=== PATIENT | female | born 1950 | race Caucasian/White ===

== ENCOUNTER 2018-08-23 22:25 | Emergency (ER) | payer BC, MEDICARE ==
[2018-08-23] MEDS ORDERED: Ketorolac 60 MG/2 ML SDV IM ONE (23:40)
--- NOTE | 2018-08-23 23:46 | EDM.PDOC ---
ED HPI GENERAL MEDICAL PROBLEM - General Chief Complaint: Lower Extremity Injury/Pain Stated Complaint: RIGHT ANKLE SWELLING/PAIN Time Seen by Provider: 08/23/18 23:40 Source of Information: Reports: Patient History Limitations: Reports: No Limitations - History of Present Illness INITIAL COMMENTS - FREE TEXT/NARRATIVE: pt arrived with acute pain in the lateral aspect of the rt ankle. This has gotten red and hot through out the day. She cannot put weight on the ankle. Onset: Gradual, Other ( last 2 days, ) Duration: Hour(s): Location: Reports: Lower Extremity, Right Associated Symptoms: Reports: Fever/Chills, Other (pt has a low grade temp. ) Treatments [employer]: Reports: Acetaminophen, NSAIDS Right Ankle Pain Score (Numeric/FACES): 8 - Related Data Allergies Allergy/AdvReac Type Severity Reaction Status Date / Time Sulfa (Sulfonamide Allergy Cannot Verified 08/23/18 23:10 Antibiotics) Remember Home Meds: Home Meds Albuterol [Proair HFA] 1 puff IH DAILY PRN 06/01/14 [History] FLUoxetine HCl [Fluoxetine HCl] 20 mg PO DAILY 06/01/14 [History] Furosemide 40 mg PO BID 06/01/14 [History] Levothyroxine 88 mcg PO ACBRK 06/01/14 [History] Lisinopril 2.5 mg PO DAILY 06/01/14 [History] Tiotropium [Spiriva Handihaler] 1 puff IH DAILY 06/01/14 [History] Metoprolol Succinate [Toprol XL] 25 mg PO DAILY 08/23/18 [History] atorvaSTATin [Lipitor] 40 mg PO BEDTIME 08/23/18 [History] Past Medical History Cardiovascular History: Reports: [place], PTCA, Stents Respiratory History: Reports: COPD, Other (See Below) Other Respiratory History: Use O2 @2L/NC has a cpap but not using Gastrointestinal History: Reports: Cholelithiasis Endocrine/Metabolic History: Reports: Other (See Below) Other Endocrine/Metabolic History: prediabetic - Infectious Disease History Infectious Disease History: Reports: Chicken Pox - Past Surgical History Cardiovascular Surgical History: Reports: Coronary Artery Stent GI Surgical History: Reports: Appendectomy, Cholecystectomy Review of Systems - Review of Systems Review Of Systems: See Below Constitutional: Reports: Fever Eyes: Reports: No Symptoms Ears: Reports: No Symptoms Nose: Reports: No Symptoms Mouth/Throat: Reports: No Symptoms Respiratory: Reports: No Symptoms Cardiovascular: Reports: No Symptoms GI/Abdominal: Reports: No Symptoms Genitourinary: Reports: No Symptoms Musculoskeletal: Reports: Other ( ankle pain) ED EXAM, GENERAL - Physical Exam Exam: See Below Free Text/Narrative:: over the last 2 days pt has developed swelling and pain in the lateral aspect of left ankle. Exam Limited By: No Limitations General Appearance: Alert, Moderate Distress Ears: Normal TMs Nose: Normal Inspection Throat/Mouth: Normal Inspection Head: Atraumatic Neck: Normal Inspection Respiratory/Chest: No Respiratory Distress Cardiovascular: Regular Rate, Rhythm GI/Abdominal: Soft, Non-Tender Extremities: Other (pain in the lateral left ankle. This ankle is swollen red and hot. ) Neurological: Alert, Oriented Course - Vital Signs Last Recorded V/S: Last Vital Signs Temp 37.2 C 08/23/18 23:11 Pulse 65 08/23/18 23:38 Resp 14 08/23/18 23:38 BP 121/48 L 08/23/18 23:38 Pulse Ox 94 L 08/23/18 23:38 - Orders/Labs/Meds Labs: Laboratory Tests 08/23/18 08/23/18 08/23/18 Range/Units 23:45 23:45 23:45 WBC 12.8 H (4.5-11.0) K/uL RBC 4.57 (3.30-5.50) M/uL Hgb 13.7 (12.0-15.0) g/dL Hct 42.1 (36.0-48.0) % MCV 92 (80-98) fL MCH 30 (27-31) pg MCHC 33 (32-36) % Plt Count 165 (150-400) K/uL Neut % (Auto) 65 (36-66) % Lymph % (Auto) 24 (24-44) % Gray % (Auto) 9 H (2-6) % Eos % (Auto) 2 (2-4) % Baso % (Auto) 0 (0-1) % Sodium 138 L (140-148) mmol/L Potassium 3.2 L (3.6-5.2) mmol/L Chloride 100 (100-108) mmol/L Carbon Dioxide 30 (21-32) mmol/L Anion Gap 11.2 (5.0-14.0) mmol/L BUN 20 H (7-18) mg/dL Creatinine 1.2 H (0.6-1.0) mg/dL Est Cr Clr Drug Dosing 33.86 mL/min Estimated GFR (MDRD) 45 L (>60) Glucose 137 H (74-106) mg/dL Uric Acid 6.1 (2.6-6.2) mg/dL Calcium 9.3 (8.5-10.1) mg/dL Total Bilirubin 0.4 (0.2-1.0) mg/dL AST 20 (15-37) U/L ALT 36 (12-78) U/L Alkaline Phosphatase 76 (46-116) U/L C-Reactive Protein 5.58 H (0.0-0.3) mg/dL Total Protein 7.6 (6.4-8.2) g/dL Albumin 3.0 L (3.4-5.0) g/dL Globulin 4.6 H (2.3-3.5) g/dL Albumin/Globulin Ratio 0.7 L (1.2-2.2) Meds: Medications Discontinued Medications Generic Name Dose Route Start Last Admin Trade Name Freq PRN Reason Stop Dose Admin Ceftriaxone Sodium 1 gm 08/24/18 00:33 Rocephin IM 08/24/18 00:34 ONETIME ONE Ketorolac Tromethamine 60 mg 08/23/18 23:40 08/23/18 23:48 Toradol IM 08/23/18 23:41 60 mg ONETIME ONE Administration Lidocaine HCl 2.1 ml 08/24/18 00:47 Xylocaine-Mpf 1% INJECT 08/24/18 00:48 ONETIME ONE - Re-Assessments/Exams Free Text/Narrative Re-Assessment/Exam: 08/24/18 00:35 pt has a crp which is very elevated. Her wbc is mildly elebvated. Her uric acid is normal. She does have a low grade temp. Departure - Departure Time of Disposition: 00:36 Disposition: Home, Self-Care 01 Condition: Fair Clinical Impression: Cellulitis - Discharge Information Referrals: Reji Kirk MD [Primary Care Provider] - Forms: ED Department Discharge Care Plan Goals: moist warm heat to the area, soak in warm water bid, augmentin 875 bid, norco 5 /325 1 tab q6h prn for pain #10, elevate leg when sitting, rtc sat pm for a recheck-- to the er, Use yogurt or probiotic while on the antibiotic.
--- NOTE | 2018-08-24 00:07 | CRLCR ---
INDICATION: Pain lateral aspect of ankle TECHNIQUE: Three views right ankle COMPARISON: None FINDINGS: Bones: Alignment is normal. No fractures. Dorsal calcaneal spur. Joint spaces: Unremarkable. Soft tissues: Lateral ankle edema. IMPRESSION: Lateral ankle edema. Dictated by Robert Lemus MD @ 08/24/2018 12:06:28 AM Dictated by: Robert Lemus MD @ 08/24/2018 00:06:34 (Electronically Signed)
[2018-08-24] MEDS ORDERED: cefTRIAXone 1 GM Vial IM ONE (00:33)
== END 2018-08-24 01:15 | disposition home or self-care (01) ==
LOC: JP.ED 22:25
DX: L03.116 Cellulitis of left lower limb (principal); Z88.2 Allergy status to sulfonamides; Z79.899 Other long term (current) drug therapy
CPT/HCPCS: 36415; 73610; 80053; 84550; 85025; 86140; 96372; 99283; J0696; J1885; J2001

== ENCOUNTER 2018-08-25 18:43 | Emergency (ER) | payer MEDICARE ==
--- NOTE | 2018-08-25 19:47 | EDM.PDOC ---
ED HPI GENERAL MEDICAL PROBLEM - General Chief Complaint: Wound Recheck Stated Complaint: ANKLE RECHECK Time Seen by Provider: 08/25/18 19:42 Source of Information: Reports: Patient History Limitations: Reports: No Limitations - History of Present Illness INITIAL COMMENTS - FREE TEXT/NARRATIVE: pt arrived for a recheck for the inflamation of the rt ankle. She is still not able to bear weight on the foot. She feels that there is more general swelling. It is not as red as it was on Thur nite. Onset: Gradual Duration: Day(s): Location: Reports: Lower Extremity, Right Associated Symptoms: Reports: No Other Symptoms - Related Data Allergies Allergy/AdvReac Type Severity Reaction Status Date / Time Sulfa (Sulfonamide Allergy Cannot Verified 08/25/18 19:31 Antibiotics) Remember Home Meds: Home Meds Albuterol [Proair HFA] 1 puff IH DAILY PRN 06/01/14 [History] FLUoxetine HCl [Fluoxetine HCl] 20 mg PO DAILY 06/01/14 [History] Furosemide 40 mg PO BID 06/01/14 [History] Levothyroxine 88 mcg PO ACBRK 06/01/14 [History] Lisinopril 2.5 mg PO DAILY 06/01/14 [History] Tiotropium [Spiriva Handihaler] 1 puff IH DAILY 06/01/14 [History] Metoprolol Succinate [Toprol XL] 25 mg PO DAILY 08/23/18 [History] atorvaSTATin [Lipitor] 40 mg PO BEDTIME 08/23/18 [History] Past Medical History Cardiovascular History: Reports: [place], PTCA, Stents Respiratory History: Reports: COPD, Other (See Below) Other Respiratory History: Use O2 @2L/NC has a cpap but not using Gastrointestinal History: Reports: Cholelithiasis Endocrine/Metabolic History: Reports: Other (See Below) Other Endocrine/Metabolic History: prediabetic - Infectious Disease History Infectious Disease History: Reports: Chicken Pox - Past Surgical History Cardiovascular Surgical History: Reports: Coronary Artery Stent GI Surgical History: Reports: Appendectomy, Cholecystectomy Social & Family History - Tobacco Use Smoking Status *Q: Never Smoker - Caffeine Use Caffeine Use: Reports: Coffee ED ROS GENERAL - Review of Systems Review Of Systems: See Below Constitutional: Reports: No Symptoms HEENT: Reports: No Symptoms Respiratory: Reports: No Symptoms Cardiovascular: Reports: No Symptoms Endocrine: Reports: No Symptoms GI/Abdominal: Reports: No Symptoms : Reports: No Symptoms Musculoskeletal: Reports: Other (pain in the rt ankle area. ) Skin: Reports: No Symptoms ED EXAM, SKIN/RASH Exam: See Below Text/Narrative:: pt arrived with continued swelling on the rt ankle . The redness is better but she continues to be swollen. Exam Limited By: No Limitations General Appearance: Alert, Anxious, Moderate Distress Ears: Normal TMs Nose: Normal Inspection Throat/Mouth: Normal Inspection Head: Atraumatic Neck: Normal Inspection Extremities: Other ( redness is better. The ankle continues to be swollen and very tender. She is still having a problem weight bearing. ) Neurological: Alert, Oriented Course - Vital Signs Last Recorded V/S: Last Vital Signs Temp 36.8 C 08/25/18 19:36 Pulse 71 08/25/18 19:36 Resp 14 08/25/18 19:36 BP 134/88 08/25/18 19:36 Pulse Ox 96 08/25/18 19:36 - Orders/Labs/Meds Orders: Active Orders 24 hr Category Date Time Status CBC WITH AUTO DIFF [HEME] Urgent Lab 08/25/18 19:53 Received RHEUMATOID FACTOR, IGG/M/A Routine Lab 08/25/18 20:02 Received Labs: Laboratory Tests 08/25/18 Range/Units 19:53 Uric Acid 7.2 H (2.6-6.2) mg/dL Meds: Medications Discontinued Medications Generic Name Dose Route Start Last Admin Trade Name Freq PRN Reason Stop Dose Admin Triamcinolone Acetonide 60 mg 08/25/18 20:30 08/25/18 20:36 Kenalog-40 INJECT 08/25/18 20:31 60 mg ASDIRECTED ONE Administration - Re-Assessments/Exams Free Text/Narrative Re-Assessment/Exam: 08/25/18 20:37 pt was found to have a elevated uric acid tonight. The redness on the lateral aspect is better. She was given kenalog 60mg im. 08/25/18 20:38 Departure - Departure Time of Disposition: 20:32 Disposition: Home, Self-Care 01 Condition: Fair Clinical Impression: Cellulitis, Gout - Discharge Information Referrals: PCP,None [Primary Care Provider] - Forms: ED Department Discharge Care Plan Goals: cont warm packs followed by a cool pack, elevate, minimal weight bearuing, predisone 10mg 2 tabs for 3 days 1.5 tabs for 3days, 1tab for 3 days, finish antibiotics . If not better by wed pt should see ortho. norco 5/325 q6h prn for pain #8 - My Orders Last 24 Hours: My Active Orders 08/25/18 19:53 CBC WITH AUTO DIFF [HEME] Urgent 08/25/18 20:02 RHEUMATOID FACTOR, IGG/M/A Routine - Assessment/Plan Last 24 Hours: My Active Orders 08/25/18 19:53 CBC WITH AUTO DIFF [HEME] Urgent 08/25/18 20:02 RHEUMATOID FACTOR, IGG/M/A Routine
[2018-08-25] MEDS ORDERED: Triamcinolone Acetonide 40 MG/ML 1 ML MDV INJECT ONE (20:30)
== END 2018-08-25 21:23 | disposition home or self-care (01) ==
LOC: JP.ED 18:43
DX: L03.116 Cellulitis of left lower limb (principal); M10.9 Gout, unspecified; J44.9 Chronic obstructive pulmonary disease, unspecified; Z79.899 Other long term (current) drug therapy; Z88.2 Allergy status to sulfonamides
CPT/HCPCS: 36415; 84550; 85025; 86431; 96372; 99283; J3301

== ENCOUNTER 2018-09-10 00:14 | Emergency (ER) | payer MEDICARE ==
[2018-09-10] MEDS ORDERED: HYDROmorphone 1 MG/ML Syringe IVPUSH ONE (00:20)
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
[2018-09-10] MEDS ORDERED: HYDROmorphone 0.5 MG/0.5 ML Syringe IVPUSH ONE ×2 (01:13→03:09)
[2018-09-10] MEDS ORDERED: LORazepam 2 MG/ML SDV IVPUSH ONE ×2 (01:13→03:10)
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
== END 2018-09-10 03:30 | disposition other institution (70) ==
LOC: JP.ED 00:14
DX: S32.010A Wedge compression fracture of first lumbar vertebra, initial encounter for closed fracture (principal); J44.9 Chronic obstructive pulmonary disease, unspecified; Z79.899 Other long term (current) drug therapy; Z88.2 Allergy status to sulfonamides; V49.9XXA Car occupant (driver) (passenger) injured in unspecified traffic accident, initial encounter
CPT/HCPCS: 36415; 51702; 72131; 72192; 80053; 81001; 85025; 96374; 96375; 96376; 99285; J1170; J2060

== ENCOUNTER 2020-08-14 23:23 | Observation (INO) | payer MEDICAID, MEDICARE, OTHER ==
[2020-08-15] MEDS ORDERED: Methocarbamol 500 MG Tab PO ONE (00:10)
[2020-08-15] MEDS ORDERED: HYDROmorphone 0.5 MG/0.5 ML Syringe IM ONE ×2 (00:35→01:44)
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
[2020-08-15] MEDS ORDERED: Bupivacaine 0.5% 10 ML SDV INJECT ONE (03:24)
[2020-08-15] MEDS ORDERED: Acetaminophen 325 MG Tab PO PRN (03:26)
[2020-08-15] MEDS ORDERED: Ibuprofen 600 MG Tab PO PRN (03:26)
[2020-08-15] MEDS ORDERED: Morphine 2 MG/ML SYRINGE IVPUSH PRN (03:26)
[2020-08-15] MEDS ORDERED: Ketorolac 30 MG/ML SDV IVPUSH PRN (03:26)
[2020-08-15] MEDS ORDERED: Promethazine 12.5 MG in Sodium Chloride 0.9% 50 ML IV PRN (03:26)
[2020-08-15] MEDS ORDERED: Ondansetron 4 MG Tab.DIS PO PRN (03:26)
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
[2020-08-15] MEDS ORDERED: HYDROmorphone 0.5 MG/0.5 ML Syringe IVPUSH PRN (03:48)
[2020-08-15] MEDS: Acetaminophen/oxyCODONE 325-5 MG Tab PO PRN ×3 (04:29→12:43)
[2020-08-15] MEDS: Gabapentin 300 MG Cap PO SCH ×2 (07:47→12:46)
[2020-08-15] MEDS ORDERED: tiZANidine 4 MG Tab PO PRN (11:13)
[2020-08-15] MEDS ORDERED: Furosemide 40 MG Tab**POM PO SCH (14:00)
[2020-08-15] MEDS ORDERED: GABAPENTIN 300 MG PO SCH (16:00)
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
[2020-08-15] MEDS ORDERED: ATORVASTATIN 40 MG PO SCH (21:00)
[2020-08-16] MEDS ORDERED: Levothyroxine 88 MCG Tab PO SCH (07:30)
[2020-08-16] MEDS ORDERED: Furosemide 40 MG Tab PO SCH (09:00)
[2020-08-16] MEDS ORDERED: ESCITALOPRAM 20 MG PO SCH (09:00)
[2020-08-16] MEDS ORDERED: TERIPARATIDE SUBCUT SCH (09:00)
[2020-08-16] MEDS ORDERED: LISINOPRIL 5 MG PO SCH (09:00)
[2020-08-16] MEDS ORDERED: Metoprolol Succinate 25 MG Tab.ER**POM PO SCH (09:00)
[2020-08-16] MEDS ORDERED: Tiotropium Bromide 4 GM Inhalation Spray (2.5mcg/1 dose; 10 doses) INH SCH (09:00)
--- NOTE | 2020-08-17 10:09 | CR ---
Abdomen 1V Upright CLINICAL HISTORY: Abdominal distention, pain FINDINGS: No free air is identified. Small intestinal configuration is nonacute. There is a large amount stool throughout the colon. IMPRESSION: Moderate fecal retention
== END 2020-08-15 17:30 | disposition home or self-care (01) ==
LOC: JP.ED 23:23 → JP.MS 08-15 03:26
PROVIDERS: ADMIT Family Medicine; ATTEND Internal Medicine
DX: G89.29 Other chronic pain (principal); S29.012A Strain of muscle and tendon of back wall of thorax, initial encounter; I10 Essential (primary) hypertension; J44.9 Chronic obstructive pulmonary disease, unspecified; E11.9 Type 2 diabetes mellitus without complications; E03.9 Hypothyroidism, unspecified; K59.09 Other constipation; I25.2 Old myocardial infarction; Z88.2 Allergy status to sulfonamides; Z79.890 Hormone replacement therapy; Z79.899 Other long term (current) drug therapy; Z95.5 Presence of coronary angioplasty implant and graft; Z95.818 Presence of other cardiac implants and grafts; Z98.890 Other specified postprocedural states; X58.XXXA Exposure to other specified factors, initial encounter
CPT/HCPCS: 74018; 74018-26; 96372; 96374; 99284-25; A9270-GY; J1170; J3490